=== PATIENT | male | born 1975 ===

== ENCOUNTER 2022-08-23 20:39 | Emergency (ER) | payer SELFPAY ==
[2022-08-23] MEDS ORDERED: Iopamidol 612 MG/ML 100 ML Bottle IV ONE (21:33)
[2022-09-18 10:59] LABS: CHLORIDE,CL 96 mmol/L (98-107); ESTIMATED GFR 108 mL/min (>=60); SODIUM,NA 132 mmol/L (136-145)
== END 2022-08-23 23:57 | disposition home or self-care (01) ==
LOC: DL.ED 20:39
DX: L73.1 Pseudofolliculitis barbae (principal)
CPT/HCPCS: 36415; 70491; 80053; 83605; 85025; 86140; 87040; 96365; 96366; 96375; 99284-25